=== PATIENT | male | born 1960 | race Caucasian/White ===

== ENCOUNTER → 2018-10-07 | Outpatient (CLI) | payer OTHER ==
[~2018-10-07] MED LIST: DARVOCET-N 1001 EACH PO; FLEXERIL PO; NOHOMEMEDICATIONS
== END ==
LOC: NUC 09:46
DX: M16.0 Bilateral primary osteoarthritis of hip (principal); Z96.642 Presence of left artificial hip joint

== ENCOUNTER 2018-11-18 05:23 | Inpatient (IN) | payer OTHER ==
[2018-11-11 09:01] LABS: HEMATOCRIT 36.8 % (42.0-52.0); MCH 32.5 pg (26.0-34.0); MCHC 35.3 g/dL (28.0-37.0); MCV 92.2 fL (80.0-100.0); RBC 3.99 mil/uL (4.50-6.00); RDW 14.3 % (10.5-14.5); WBC 4.7 thou/uL (4.0-11.0)
[2018-11-11 09:09] LABS: ALBUMIN 4.2 g/dL (3.4-5.0); CALCIUM 8.7 mg/dL (8.5-10.1); CREATININE 0.7 mg/dL (0.7-1.3); POTASSIUM 4.2 mmol/L (3.5-5.1)
[2018-11-11 09:12] LABS: PROTIME 10.7 Seconds (9.3-11.4)
[2018-11-11 09:19] LABS: URINE BILIRUBIN NEGATIVE (Negative); URINE BLOOD NEGATIVE (Negative); URINE CLARITY CLEAR; URINE COLOR YELLOW; URINE GLUCOSE-RANDOM* NEGATIVE (Negative); URINE KETONES NEGATIVE (Negative); URINE LEUKOCYTES-REFLEX NEGATIVE (Negative); URINE NITRITE-REFLEX NEGATIVE (Negative); URINE PROTEIN (DIPSTICK) NEGATIVE (Negative); URINE SPECIFIC GRAVITY <= 1.005 (1.005-1.035); URINE UROBILINOGEN 0.2 E.U./dl (0.2-1.0)
[~2018-11-18] VITALS: Ht 170.2 cm; Wt 76.7 kg
[2018-11-18] VITALS (7 sets, daily range): BP systolic 123–149; BP diastolic 64–87
--- NOTE | ~2018-11-18 | O ---
[facility] [place] [address] OPERATIVE REPORT Name: MARIANNA PARRISH SILVERIO Room #: 150-2 ADM IN M.R.#: [id number] Admission: 11/18/18 ������������������ Attend Phys: Marianna Rao MD Discharge: ������������������ Date of : 56 Report #: [id number] THIS REPORT FOR: //name// CC: Miguelitocarmen Contrerasmarlin Rao DATE OF SERVICE: 11/18/2018 PREOPERATIVE DIAGNOSIS: Failed left hip hemiarthroplasty. POSTOPERATIVE DIAGNOSIS: Failed left hip hemiarthroplasty. PROCEDURE: Revision left total hip arthroplasty. SURGEON: Marianna Rao MD INDICATIONS: This 58-year-old gentleman underwent left hip hemiarthroplasty a number of years following a traumatic event. Recently, he has had progressive left hip pain with difficulty walking and bearing weight. Clinical exam and x-rays suggest progressive wear and reactive synovitis involving the acetabulum. We have not found evidence of significant loosening of the stem nor infection. We have discussed treatment options and elected to revise his old hemiarthroplasty to a total hip replacement hoping we can see some improvement in function and comfort. We have discussed preoperatively the potential risks as well as benefits, the patient and his understands well. DESCRIPTION OF PROCEDURE: The patient was taken to the operating room where he was placed under general anesthesia. Prophylactic intravenous antibiotics were administered. He was turned to the right lateral decubitus position. The left hip, thigh and leg were meticulously prepped and draped. A skin incision was made through his old surgical scar and extended into the posterior aspect of the hip joint. The old scar capsule and external rotators were taken down as a unit and preserved. The joint was opened and rather marked synovial hypertrophy was identified. A specimen of synovium was sent for pathology and culture. Another swab was also sent for culture. There was no evidence of purulence and this appears to be more reactive synovitis rather than infection. The hip was then dislocated. The head unit was removed. The stem is a noncemented porous ingrowth stem and seemed to be solid. There was no evidence of loosening or bony atrophy. I felt it would be most appropriate to have a new stem to match the acetabular component and elected to remove the stem, this was accomplished with thin osteotomes to break the stem free from the surrounding bone and then the stem was removed, this was accomplished with some difficulty. Once the stem was removed, the canal was inspected and there was no evidence of fracture nor any other significant abnormalities. The Sharma and Nephew hip system was then utilized. The canal was further opened and contoured with reamers gradually advancing to a 13 mm reamer size. The proximal femur was then enlarged with a [facility] [address] [place] [address] OPERATIVE REPORT Name: MARIANNA PARRISH Room #: 150-2 [facility] IN M.R.#: [id number] Admission: 11/18/18 ������������������ Attend Phys: Marianna Rao MD Discharge: ������������������ Date of : 56 Report #: [id number] hand broaches and a size 13 femoral stem broach seemed to fit most appropriately and appeared to be stable. The femoral neck and calcar region was trimmed down to an appropriate level. Trial stem was removed and attention was directed to the acetabulum. Exposure was established with some difficulty as there was a good deal of scarring. Once adequate exposure was established, the acetabulum was sequentially reamed, gradually advancing to a 54 mm reamer. At this point, the acetabulum seemed to be smooth and well contoured and a trial acetabular component was placed, this seated well and appeared to be secure. Given this, I felt a 54 mm shell was appropriate and would fit nicely. The Sharma and Nephew fenestrated three-hole shell was selected. This was impacted into the acetabulum and aligned with his true acetabulum, which positioned this at about 45 degrees off vertical and about 20 degrees of anteversion, it seated nicely and appeared to be secure. In addition, 3 screws were placed through the holes in the apex of the shell with good purchase on surrounding acetabular bone. A 36 mm polyethylene insert was then applied, positioning the 20-degree elevated coleman at the 9 o'clock posterior position. This component also seated nicely and appeared to be secure. A trial reduction was performed once again using a size 13 stem. A +8 mm neck length resulted in satisfactory alignment, range of motion, stability and leg length. The lateral offset femoral stem seemed to work most appropriately. The trial stem was removed and the permanent stem was brought onto the field. This is a Sharma and Nephew size 13 Synergy porous high offset femoral component. This was inserted in about 15 degrees of anteversion. It seated nicely and appeared to be very secure. A 36 mm Oxinium head was utilized with a +8 mm neck length. This was impacted on the Salgado taper and the hip was reduced. Alignment, range of motion, stability and leg length were assessed and felt to be satisfactory. The remnants of the capsule and short external rotators and surrounding scar were then repaired back to bone using the #1 Tevdek sutures, which had been used initially for traction and preservation. This resulted in satisfactory additional hip stability. A single Hemovac was left in the wound exiting through a separate stab incision. The fascia was closed with multiple #1 Vicryl sutures. The subcutaneous tissues were closed with 0 Monocryl. The skin was closed with skin sami. A sterile dressing was applied. The patient was awakened and returned to the recovery room in good condition. His total blood loss was estimated at 300 mL. He appears to be stable in the recovery room at the time of this dictation. ��������������������������������������������� ���������������������������������������� By: ��������������������������������������������� [id number] Marianna Rao MD /nt
[~2018-11-18 05:23] MED LIST changes: +ALEVE220 MG PO; +CENTRUM SILVER1 EAC2 PO; +FISH OIL 1,001000 M2 PO; +FLOMAX0.4 MG PO; +GEMFIBROZIL 60600 MG PO; +GLUCOSAMINE CH1 EA10 PO; +MELATONIN1 MG PO; +TURMERIC 500 M1 EACH PO; +VITAMINC500 PO; +ZANTAC 150MG T150 MG PO
--- NOTE | 2018-11-18 20:18 | NUR ---
Pt admitted in the farah from Operating room, post op L total hip revision. With SL at L AC. A+Ox4. On room air. With JANEY dressing, C/D/I- with hemovac in place- output measured and recorded; 172ml. Admission care rendered. Pt on clear liquids then advance as tolerated, pt had Chicken broth and juice- able to tolerate well, no episode of nausea, no vomiting and no abdominal pain noted- diet advanced, supplements ordered and pt finished all of it. With order to discontinue hemovac drain 11/19- night staff informed. Ice packs placed over incsion site. Head of bed kept elevated. Pt with CEZAR socks- thigh high and SCDs on. Vital signs taken and recorded by BUSINESS DEVELOPMENT OFFICER. Vital signs stable. Pt on weight bearing as tolerated. Pain scale monitored upon pt's arrival on the farah 08/05- pt asked if he wants pain meds, he does not want as of the moment but will let me know if he wants to have his pain meds. Checked pt's orders- with consult to Dr Guaman- checked and noted that consult called from PACU- night staff advised to call in and follow up consults. Pt with orders for 2 days hemogram- pt informed. Pt with his at the bedside. Able to pass urine.
[2018-11-19 04:22] VITALS: BP 112/62
[2018-11-19 06:16] LABS: HEMATOCRIT 28.3 % (42.0-52.0); MCH 32.7 pg (26.0-34.0); MCHC 35.4 g/dL (28.0-37.0); MCV 92.4 fL (80.0-100.0); RBC 3.06 mil/uL (4.50-6.00); RDW 13.8 % (10.5-14.5); WBC 6.6 thou/uL (4.0-11.0)
[2018-11-19 06:25] LABS: CALCIUM 8.2 mg/dL (8.5-10.1); CREATININE 0.8 mg/dL (0.7-1.3); POTASSIUM 3.8 mmol/L (3.5-5.1)
--- NOTE | 2018-11-19 07:50 | NUR ---
Assumed care at 1845. Pt resting in bed. AOX4. VSS. JANEY dressing intact. Emptied 225ml from Hemovac. Pt is weight bearing as tolerated. No identified needs at the moment. Will continue to monitor.
[2018-11-19 08:13] VITALS: BP 123/70
--- NOTE | 2018-11-19 14:09 | NUR ---
PT ADMITTED RELATED TO LEFT HIP REVISION. CM REVIEWED CHART AND SPOKE WITH CARE TEAM. CM MET WITH PT AT BEDSIDE THIS DAY. PT IS A&O X4. CM ROLE INTRODUCED. PT INDICATED HE LIVES IN A HOUSE WITH HIS SPOUSE WITH 2 STEPS TO ENTER AND 7 STEPS INSIDE. PT INDICATED HE HAS A CANE, CRUTCHES, AND A FWW FOR USE AT HOME. PT INIDCATED HE THOUGHT HE MIGHT PREFER HOME HEALTH PT AND OT UPON DC. CM TO FOLLOW INDICATED WITH DC PLANNING.
[2018-11-19 14:57] VITALS: BP 139/73
[2018-11-19] MEDS ORDERED: COLACE100 MG PO (15:02)
[2018-11-19] MEDS ORDERED: MIRALAX17 GM PO (15:02)
--- NOTE | 2018-11-19 16:24 | NUR ---
Assumed pt care this am, pt is post op day 1 left totla hip revison. JANEY dressiong dry amd intact, with hemovac dranubg fresh blood. CEZAR wang and SCD's on. Ice packs placed on the surgical site. Pt worked with physical therapy and was able to ambulate with a walker and gait belt with ease, gait has been steady. Later on in the afternoon, I took the pt for a walk around the unit 2 times, after 30 min, pt complained of left knee pain and requested medication, partial relief was noted. Diet is well tolerated. Will observe for other signs of distress. Will monitor pt's pain, VS stable POC followed.
[2018-11-20 05:21] LABS: HEMATOCRIT 28.5 % (42.0-52.0); MCH 32.4 pg (26.0-34.0); MCHC 35.2 g/dL (28.0-37.0); MCV 91.9 fL (80.0-100.0); RBC 3.1 mil/uL (4.50-6.00); WBC 7.6 thou/uL (4.0-11.0)
--- NOTE | 2018-11-20 05:49 | NUR ---
ASSUMED CARE OF PT AT 1900HRS. PT IS AOX4 AND LETS NEEDS BE KNOWN. SURGICAL SITE IS INTACT AND HEMOVAC IS PATIENT. PT REPORTED SEVERE LEFT KNEE PAIN THAT IS NOT MANAGED WITH PRN PAIN MEDS. PT IS UNABLE TO GET COMFORTABLE HOWEVER, PT WAS ABLE TO GET SOME SLEEP. NO OTHER S/S OF ACUTE DISTRESS. WILL CONTINUE TO MONITOR.
[2018-11-20 07:54] VITALS: BP 129/67
--- NOTE | 2018-11-20 15:03 | NUR ---
PT STABLE THROUGHOUT SHIFT. PT C/O KNEE PAIN THAT WAS UNCONTROLLED THROUGHOUT SHIFT. PT HIP AND KNEE WERE X-RAYED, PHYSICIAN FEELS IT IS ARTHRITIS EXACERBATED. PT FEELS HE SHOULD STAY ANOTHER NIGHT, PHYSICIAN SAID OK. PT WORKED WITH PT. PAIN MEDICATION GIVEN WITH PARTIAL RELIEF. FALLS PRECAUTIONS IN PLACE. PT RESTING, FAMILY AT BEDSIDE.
--- NOTE | 2018-11-20 15:46 | NUR ---
CARE TEAM INDICATED THAT PT WILL LIKELY BE MEDICALLY STABLE TO DC HOME TOMORROW. CM SENT REFERRAL TO [facility] FOR HOME HEALTH PT AND OT. [facility] CAN ACCEPT PT AND WILL DO A SOC DAY AFTER DC. ORDERS TO BE FAXED TO . PT HAD A FWW FOR HOME USE. NO OTHER CM INTERVENTION INDICATED. CASE CLOSED.
[2018-11-20 15:49] VITALS: BP 129/67
[2018-11-20 16:58] VITALS: BP 127/67
[2018-11-20 19:32] VITALS: BP 131/67
--- NOTE | 2018-11-21 03:36 | NUR ---
ASSUMED CARE OF PT AT 1900HRS. PT AOX4 AND LETS NEEDS BE KNOWN. PT'S PAIN WAS BETTER MANAGED TODAY. PT WAS ABLE TO GET COMFORTABLE AND GET SOME SLEEP. NO S/S OF ACUTE DISTRESS. WILL CONTINUE TO MONITOR.
[2018-11-21 04:24] VITALS: BP 123/66
[2018-11-21 05:52] LABS: HEMOGLOBIN 9.5 gm/dL (14.0-18.0); MCH 32.4 pg (26.0-34.0); MCV 92.5 fL (80.0-100.0); RBC 2.92 mil/uL (4.50-6.00); RDW 13.9 % (10.5-14.5); WBC 7.5 thou/uL (4.0-11.0)
[2018-11-21 08:00] VITALS: BP 115/67
--- NOTE | 2018-11-21 11:06 | PATH ---
[facility] [address] [place] [address] PATHOLOGY RPT PROCEDURE Name: HERMILAWATSONMARIANNA Room #: 450-P ADM IN M.R.#: [id number] ������������������ Admission: 11/18/18 ������������������ Date of : 56 Discharge: Report #: [id number] Path Case #: [id number] [facility] Accession Number: [id number] . 01 Material submitted: . hip - LEFT HIP JOINT TISSUE-LEFT TOTAL HIP REVISION. Modifiers: left . 01 Clinical history: . Left hip OA, pain . 02 Diagnosis: "Left hip joint tissue-left total hip revision", removal: - Portion of fibrocartilage with degenerative changes. - Portions of synovium with foreign body giant cells. - Portion of unremarkable bone with bone marrow showing trilineage hematopoiesis. (GINA:francisco; 11/20/2018) JIMENA/11/20/2018 . 02 Electronically signed: . Sanford Luevano MD, Pathologist NPI- [id number] . 01 Gross description: . The specimen is received in formalin, labeled "Marianna Parrish, left hip joint tissue-left total hip revision" and consists of multiple rubbery segments of altamirano-orange tissue with attached calcified tissue/bone measuring 5.3 x 4.8 x 1.8 cm in aggregate. A retail account representative portion is submitted in A1 following decalcification. (SDY; 11/19/2018) SYU/SYU . 02 Pathologist provided ICD-10: M16.12 . 02 CPT . 407002, [id number] Specimen Comment: A courtesy copy of this report has been sent to Specimen Comment: [phone], . Specimen Comment: Report sent to / DR DONALDSON Performed at: [address] [id number] MD Jim Clemons MD Phone: [phone] Performed at: [address] [id number] [address] [address] PATHOLOGY RPT PROCEDURE Name: MARIANNA PARRISH SILVERIO Room #: 450-P [facility] IN M.R.#: [id number] ������������������ Admission: 11/18/18 ������������������ Date of : 56 Discharge: Report #: [id number] Path Case #: [id number] MD Val Fu MD Phone: [phone]
--- NOTE | 2018-11-21 11:32 | NUR ---
PT STABLE THIS MORNING. DR. Carmona PERFORMED BEDSIDE PROCEDURE AND DRAINED FLUID FROM PT'S KNEE. AFTER PROCEDURE PT EXPERIENCED ALMOST IMMEDIATE RELIEF. PT ABLE TO WORK WITH PT SUCCESFULLY WITH MINIMAL DISCOMFORT. PT DISCHARGED HOME WITH HH. ORDERS FAXED TO [facility], CALL PLACED TO THEM TO ADVISE OF PT'S DISCHARGE. PT LEFT UNIT VIA WHEELCHAIR TO PRIVATE VEHICLE.
== END 2018-11-21 10:30 | disposition home health service (06) | DRG 468 ==
LOC: 4W 05:23 → TBA 05:23 → PRE 05:55 → 4W 15:37 → PRE 11-19 10:17 → 4W 11-21 10:30
PROVIDERS: Nurse Practitioner Acute Care; ADMIT Orthopaedic Surgery
DX: T84.091A Other mechanical complication of internal left hip prosthesis, initial encounter (principal); M19.90 Unspecified osteoarthritis, unspecified site; N40.0 Benign prostatic hyperplasia without lower urinary tract symptoms; M25.462 Effusion, left knee; Y83.8 Other surgical procedures as the cause of abnormal reaction of the patient, or of later complication, without mention of misadventure at the time of the procedure; Z88.8 Allergy status to other drugs, medicaments and biological substances; Y92.89 Other specified places as the place of occurrence of the external cause
CPT/HCPCS: 10047; 50010; 50101; 50382; 50414; 51412; 55389; 56521; 56525; 56527; 57095; 62110; 62900; 70005